=== PATIENT | female | born 1940 | race Caucasian/White ===

== ENCOUNTER 2019-06-08 21:06 | Inpatient (IN) | payer OTHER ==
[~2019-06-08] VITALS: Ht 154.9 cm; Wt 42.4 kg
[2019-06-08 21:09] VITALS: Ht 154.9 cm; Wt 42.4 kg
--- NOTE | 2019-06-08 21:20 | NUR ---
PATIENT SEEN WITH COMPLAINT OF MID ABDOMINAL PAIN W TIH NAUSEA AND VOMITING. PATIENT IS WAITING FOR MD EVALUATION.
[2019-06-08 21:42] LABS: PLATELET COUNT 225 x10^3mcL (130-400); RED CELL DISTRIBUTION WIDTH 13.9 % (11.5-14.5)
[2019-06-08 21:50] LABS: CALCIUM 9.5 mg/dL (8.5-10.1); CARBON DIOXIDE 26.9 mmol/L (21-32); CHLORIDE SERUM 99 mmol/L (98-107); CREATININE SERUM 0.9 mg/dL (0.6-1.0); GLUCOSE SERUM 220 mg/dL (74-106); POTASSIUM SERUM 3.1 mmol/L (3.5-5.1); SODIUM SERUM 140 mmol/L (136-145)
[2019-06-08 21:53] LABS: BAND NEUTROPHIL 10 % (0-10); MONOCYTE 1 % (0-7); SEGMENTED NEUTROPHILS 87 % (37-75)
[2019-06-08 21:55] LABS: PLATELET MORPHOLOGY PLATELETS NORMAL; rbc morphology (normal/abnorm) NORMAL (NORMAL)
[2019-06-08 21:59] LABS: ALBUMIN 4.1 g/dL (3.4-5.0); ALKALINE PHOSPHATASE 130 U/L (46-116); ALT/SGPT 886 U/L (14-59); BILIRUBIN TOTAL 3.04 mg/dL (0.20-1.00); LIPASE 115 IU/L (73-393); TOTAL PROTEIN, SERUM 7.6 g/dL (6.4-8.2)
--- NOTE | 2019-06-08 22:00 | NUR ---
SALINE LOCK INSERTED. PATIENT MEDICATED WITH ZOFRAN AND MORPHINE.
[2019-06-08 22:02] LABS: AST/SGOT 1366 U/L (15-37)
--- NOTE | 2019-06-08 22:25 | NUR ---
PATIENT WENT FOR XRAY/CT HAD SAME DONE AND RETURN TO THE ROOM.
--- NOTE | 2019-06-08 22:56 | NUR ---
PATIENT RESTING WITH EYES CLOSED, NO DISTRESS
[2019-06-08] MEDS ORDERED: TRAZODONE50 M1 PO (23:31)
--- NOTE | 2019-06-09 00:14 | NUR ---
REPORT WAS GIVEN TO ROSA. PATIENT WILL BE TRANSPORTED TO ROOM 250B.
--- NOTE | 2019-06-09 00:15 | NUR ---
PATIENT TRANSPORTED TO THE ROOM
[2019-06-09 00:41] VITALS: BP 170/83
--- NOTE | 2019-06-09 00:44 | NUR ---
RECEIVED PT FROM ED VIA KWAME. ORIENTED PT TO ROOM AND SURROUNDINGS. IV NOTED TO LAC PATENT AND INTACT. TELE 26 PLACED ON PT READING NSR. INSTRUCTED PT ON THE USE OF CALL LIGHT FOR ASSISTANCE. ENDORSED PT TO PRIMARY NURSE ROSA
--- NOTE | 2019-06-09 00:55 | NUR ---
DR. GRIMALDO MADE AWARE OF CT ABD RESULTS.
[2019-06-09 02:01] LABS: CHOLESTEROL/HDL RATIO 3.3
[2019-06-09 02:15] LABS: FREE T4 1.18 ng/dL (0.76-1.46); FREE THYROXINE INDEX 3.7 ug/dL (1.4-4.5); T4(THYROXINE) 10.6 ug/dL (4.7-13.3)
--- NOTE | 2019-06-09 02:45 | NUR ---
US TECH AT BEDSIDE. PT REFUSING STAT US ABD AT THIS TIME, REQUESTS FOR TECH TO RETURN AT A LATER TIME
[2019-06-09 02:58] LABS: T3 TOTAL 0.89 ng/mL
--- NOTE | 2019-06-09 03:43 | NUR ---
RESTING IN BED WITH EYES CLOSED. BREATHING E/U, NO ACUTE DISTRESS NOTED. WILL CONTINUE TO MONITOR.
[2019-06-09 04:49] VITALS: BP 175/71
--- NOTE | 2019-06-09 05:30 | NUR ---
NOTIFIED DR GRIMALDO OF BP 175/70, HR 45.
[2019-06-09 06:39] LABS: UA SPECIFIC GRAVITY 1.015 (1.005-1.035); microscopic required? YES; urine erythrocyte 2+ (NEGATIVE)
--- NOTE | 2019-06-09 07:07 | NUR ---
PT C/O ABD PAIN 12/23 THIS AM. STATES TOLERABLE. NPO OVERNIGHT FOR POSSIBLE PROCEDURE TODAY. NO ACUTE DISTRESS NOTED. WILL ENDORSE TO ONCOMING RN.
--- NOTE | 2019-06-09 07:15 | NUR ---
BP ELEVATED 178/75, HR 44, DR. KIMBALL MADE AWARE. NO BP MED TO GIVE AT THIS TIME. PHYSICIAN MADE AWARE. AWAITING FURTHER ORDERS. NO S/S OF ACUTE DISTRESS. WILL CONTINUE TO MONITOR CLOSELY. NO LUCIA. NO DIZZINESS. NO CHEST PAIN. PT CALM/COOPERATIVE LAYING IN BED. NO SOB ON ROOM AIR. SPEAKS SOUTH [place]UDANESE. AA/OX3. FOLLOWS COMPLEX COMMANDS. FALL PREC IN PLACE. BED IN LOW POSITION. PT IN ROOM CLOSE TO NURSES STATION. IV WNL TO LAC, PATENT AND FLUSHES WELL. SALINE LOCKED. INSTRUCTED TO USE CALL LIGHT TO CALL FOR ASSISTANCE PRN. VERBALIZED UNDERSTANDING. WILL CONTINUE TO MONITOR.
[2019-06-09 07:16] LABS: PLATELET COUNT 195 x10^3mcL (130-400); RED CELL DISTRIBUTION WIDTH 14.4 % (11.5-14.5)
[2019-06-09 07:41] LABS: ALBUMIN 3.5 g/dL (3.4-5.0); ALKALINE PHOSPHATASE 122 U/L (46-116); ALT/SGPT 850 U/L (14-59); AST/SGOT 666 U/L (15-37); BILIRUBIN TOTAL 4.25 mg/dL (0.20-1.00); CALCIUM 8.6 mg/dL (8.5-10.1); CARBON DIOXIDE 21.2 mmol/L (21-32); CHLORIDE SERUM 101 mmol/L (98-107); CREATININE SERUM 0.6 mg/dL (0.6-1.0); GLUCOSE SERUM 174 mg/dL (74-106); POTASSIUM SERUM 3.1 mmol/L (3.5-5.1); SODIUM SERUM 138 mmol/L (136-145); TOTAL PROTEIN, SERUM 6.8 g/dL (6.4-8.2)
[2019-06-09 08:32] VITALS: BP 177/69
--- NOTE | 2019-06-09 09:33 | NUR ---
WBC 28.7, INCREASED, DR. KIMBALL MADE AWARE. NO FURTHER ORDERS AT THIS TIME. NO CHILLS. NO FEVER. NO SOB ON ROOM AIR. NO S/S OF ACUTE DISTRESS. NO N/V. PT SCHEDULED FOR PROCEDURE TODAY. K 3.1. DR. KIMBALL AWARE. AWAITING FURTHER ORDERS. WILL MONITOR.
--- NOTE | 2019-06-09 10:10 | NUR ---
PT TAKEN FOR PROCEDURE. AA/OX4. NO S/S OF ACUTE DISTRESS. BP DECREASED. 155/80 WITHOUT MEDICATION. NO CHEST PAIN. REPORTS MODERATE ABDOMINAL PAIN. DECLINED TO PAIN MED AT THIS TIME. NO N/V. NO SOB ON ROOM AIR. O2 SAT 95%. RR EVEN/SHALLOW UNLABORED. IV WNL TO LAC, SALINE LOCKED. REPORT GIVEN TO UPSETTERPARRISH MARCUM. RASHAWN WIPES COMPLETED. GLASSES IN PT ROOM.
[2019-06-09 10:16] LABS: BAND NEUTROPHIL 7 % (0-10); BASOPHIL 0 % (0-2); MONOCYTE 1 % (0-7); SEGMENTED NEUTROPHILS 90 % (37-75)
[2019-06-09 10:17] LABS: PLATELET MORPHOLOGY PLATELETS DECREASED
--- NOTE | 2019-06-09 11:25 | NUR ---
BLOOD CULTURE SHOWS GRAM NEGATIVE BACILLI. DR. KIMBALL AWARE. PT RECEIVING ZOSYN. NO FURTHER ORDERS. PT STILL IN PROCEDURE. WILL MONITOR.
[2019-06-09 12:52] LABS: rbc morphology (normal/abnorm) ABNORMAL (NORMAL)
[2019-06-09 13:47] VITALS: BP 159/79
--- NOTE | 2019-06-09 13:47 | NUR ---
PT BACK FROM PROCEDURE. AA/OX4. VS STABLE: BP 159/79, HR 87, O2 SAT 95% ON ROOM AIR. RR 16, TEMP 98.6F. REPORTS MILD ABDOMINAL PAIN, RATES 3/10, CRAMPING, DECLINED PAIN MEDICATION. NO SOB ON ROOM AIR. NO CHEST PAIN. NSR ON TELE 26. IV WNL TO LAC, NO REDNESS, NO SWELLING, NO INFITLRATION. PATENT AND FLUSHES WELL. IV FLUIDS FLOWING. BED IN LOW POSITION. CALL LIGHT WITHIN REACH. WILL CONTINUE TO MONITOR.
[2019-06-09 16:48] VITALS: BP 146/79
--- NOTE | 2019-06-09 18:25 | NUR ---
PT LAYING IN BED. POOR APPETITE NOTED. DENIES N/V. DENIES ABD. PAIN. NO SOB ON ROOM AIR. CALM AND COOPERATIVE. AA/OX4. IV WNL TO RIGHT WRIST, IV FLUIDS FLOWING. NO CHEST PAIN. BED IN LOW POSITION. CALL LIGHT WITHIN REACH. FALL PRECAUTIONS IN PLACE. WILL ENDORSE TO ONCOMING SHIFT.
--- NOTE | 2019-06-09 20:00 | NUR ---
RECEIVED PT IN BED, A/O X4. DENIES HEADACHE/DIZZINESS. RESP. EVEN AND UNLABORED. LUNG SOUNDS CLEAR. BILAT. ON ROOM AIR, NO ACUTE DISTRESS NOTED. AFEBRILE AND VITAL SIGNS STABLE.SR ON THE MONITOR, DENIES CP OR ANY DISCOMFORT AT THIS TIME. IVF, NS AT 100ML/HR, INTACT AND INFUSING VIA LAC, SITE CLEAR. ASSISTED WITH HS CARE. CALL LIGHT WITHIN REACH. WILL CONTINUE TO MONITOR.
[2019-06-09 20:09] VITALS: BP 144/79
--- NOTE | 2019-06-09 22:30 | NUR ---
SEEN BY DR SERRATO. NO NEW ORDER RECEIVED. CALL LIGHT WITHIN REACH. WILL CONTINUE TO MONITOR.
--- NOTE | 2019-06-10 03:34 | NUR ---
RESTING QUIETLY IN BED, WITH EYES CLOSED,APPEARS ASLEEP, EASILY AROUSABLE. RESP. EVEN AND UNLABORED.NO ACUTE DISTRESS NOTED. IVF INTACT AND INFUSING WELL, SITE CLEAR. CALL LIGHT WITHIN REACH.
[2019-06-10 05:32] VITALS: BP 145/71
--- NOTE | 2019-06-10 06:01 | NUR ---
SLEPT WELL. NO COMPLAINTS OF PAIN OR ANY DISCOMFORT DURING THE NIGHT. AFEBRILE AND VITAL SIGNS STABLE. DENIES CP OR PRESSURE. DUE MEDS GIVEN ORDERED, NATALIA. WELL. IVF INTACT AND INFUSING WELL, SITE CLEAR. VOIDING FREELY. KEPT COMFORTABLE. CALL LIGHT WITHIN REACH. WILL CONTINUE TO MONITOR.
[2019-06-10 07:09] LABS: BASOPHIL % 0.1 % (0-2); PLATELET COUNT 145 x10^3mcL (130-400); RED CELL DISTRIBUTION WIDTH 14.5 % (11.5-14.5)
--- NOTE | 2019-06-10 07:10 | NUR ---
RECEIVED PT FROM SHIFT NURSE A/OX4 RESTING IN BED. NO ACUTE DISTRESS NTOED. IV INTACT AND PATENT. BED IN LOW POSITION. CALL LIGHT WITHIN REACH. WILL CONTINUE TO MONITOR.
[2019-06-10 07:36] LABS: CALCIUM 8.1 mg/dL (8.5-10.1); CARBON DIOXIDE 26.9 mmol/L (21-32); CHLORIDE SERUM 105 mmol/L (98-107); CREATININE SERUM 0.7 mg/dL (0.6-1.0); GLUCOSE SERUM 102 mg/dL (74-106); MAGNESIUM 2.1 mg/dL (1.8-2.4); PHOSPHOROUS 1.9 mg/dL (2.5-4.9); POTASSIUM SERUM 3.7 mmol/L (3.5-5.1); SODIUM SERUM 139 mmol/L (136-145)
[2019-06-10 08:49] VITALS: BP 143/72
--- NOTE | 2019-06-10 10:10 | NUR ---
PT ASLEEP BUT AROUSABLE. NO ACUTE DISTRESS NOTED. AT BEDSIDE. CALL LIGHT WITHIN REACH. WILL CONTINUE TO MONITOR.
[2019-06-10 12:22] VITALS: BP 140/81
--- NOTE | 2019-06-10 12:29 | NUR ---
PT FELL IN THE BATHROOM AND HIT THE BACK OF HER HEAD. PT STATED SHE DENIES ANY DIZZINES BUT FEELS A LITTLE BIT OF HEAD PAIN. ASSISTED BACK TO BED. APPLIED ICE PACK ON BACK OF HEAD. WILL CONTINUE TO MONITOR.
--- NOTE | 2019-06-10 13:00 | NUR ---
PT BACK FROM PROCEDURE.
--- NOTE | 2019-06-10 13:34 | NUR ---
MADE AWARE RESULTS OF THE CT SCAN HEAD.
--- NOTE | 2019-06-10 14:30 | NUR ---
PT ASLEEP BUT AROUSABLE. NO ACUTE DISTRESS NOTED. FAMILY MEMBERS AT BEDSIDE. CALL LIGHT WITHIN REACH. WILL CONTINUE TO MONITOR.
--- NOTE | 2019-06-10 16:35 | NUR ---
PT REMAINS ASLEEP BUT AROUSABLE. NO ACUTE DISTRESS NOTED. CALL LIGHT WITHIN REACH. WILL CONTINUE TO MONITOR.
[2019-06-10 17:59] VITALS: BP 148/77
--- NOTE | 2019-06-10 18:29 | NUR ---
PT RESTING IN BED WATCHING TV. NO C/O OF ABD PAIN. DENIES ANY DIZZINESS. IV INTACT AND PATENT. FALL PRECAUTIONS IN PLACE. BED IN LOW POSITION. CALL LIGHT WITHIN REACH. WILL BE ENDORSED.
--- NOTE | 2019-06-10 19:30 | NUR ---
A/O x4. DENIES ANY LUCIA OR DIZZINESS. TELE #26, NSR. DENIES ANY CHEST PAIN OR PRESSURE. PULSES ARE PRESENT. NO EDEMA NOTED. LUNGS CLEAR IN ALL FEILDS. ON RA, DENIES ANY SOB. EQUAL CHEST RISE AND FALL. NO SIGN OF RESP DISTRESS. BOWEL SOUNDS PRESENT x4. ABD SOFT AND FLAT. SKIN WARM AND INTACT. DENIES ANY PAIN AT THIS TIME. IV ON LAC INTACT AND PATENT. NO SIGN OF IRRITATION OR INFILTRATION NOTED. BED IS AT LOWEST SETTING. CALL LIGHT WITHIN REACH. BED ALARM IS ON. WILL CONTINUE TO [facility].
[2019-06-10 20:09] VITALS: BP 154/76
--- NOTE | 2019-06-11 00:27 | NUR ---
PT IS RESTING IN BED WITH BOTH EYES CLOSED. BREATHING EVEN AND UNALBORED. NO SIGN OF DISTRESS NOTED. BED IS AT LOWEST SETTING. CALL LIGHT WITHIN REACH. WILL CONTINUE TO MONITOR.
[2019-06-11 06:00] VITALS: BP 143/66
--- NOTE | 2019-06-11 06:35 | NUR ---
PT IS RESTING IN BED WITH BOTH EYES CLOSED. BREATHING EVEN AND UNLABORED. NO SIGN OF DISTRESS NOTED. NO ACUTE EVENT OCCURED AT NIGHT. BED IS AT LOWEST SETTING. CALL LIGHT WITHIN REACH. BED ALARM IS ON. WILL ENDORSE TO AM NURSE.
[2019-06-11 06:38] LABS: BASOPHIL % 0.2 % (0-2); PLATELET COUNT 142 x10^3mcL (130-400); RED CELL DISTRIBUTION WIDTH 14.5 % (11.5-14.5)
[2019-06-11 06:58] LABS: ALKALINE PHOSPHATASE 89 U/L (46-116); ALT/SGPT 265 U/L (14-59); AST/SGOT 54 U/L (15-37); BILIRUBIN TOTAL 1.2 mg/dL (0.20-1.00); CALCIUM 8.1 mg/dL (8.5-10.1); CARBON DIOXIDE 28.7 mmol/L (21-32); CHLORIDE SERUM 105 mmol/L (98-107); CHOLESTEROL 157 mg/dL (<200); CHOLESTEROL/HDL RATIO 4.1; CREATININE SERUM 0.5 mg/dL (0.6-1.0); GLUCOSE SERUM 89 mg/dL (74-106); HDL CHOLESTEROL 38 mg/dL (40-60); MAGNESIUM 1.9 mg/dL (1.8-2.4); PHOSPHOROUS 1.6 mg/dL (2.5-4.9); SODIUM SERUM 141 mmol/L (136-145); TRIGLYCERIDES 143 mg/dL (<150)
[2019-06-11 07:01] LABS: ALBUMIN 2.4 g/dL (3.4-5.0); TOTAL PROTEIN, SERUM 5.4 g/dL (6.4-8.2)
--- NOTE | 2019-06-11 07:20 | NUR ---
PT RESTING IN BED W/ EYES CLOSED, VERBAL, SLOVENIAN, DENIED PAIN/CP/PRESURE AT THIS TIME, DENIED N/V/D/DIZZINESS, AXOX4, PERRLA, NO REDNESS/DRAINAGE, LUNGS CTA, RESP EVEN AND NON-LABORED, TELE # 26, NSR, HR-75 AT THIS TIME, CHEST RISE SYMMETRICALLY, ABD FLAT AND NON-TENDER TO TOUCH, BS ACTIVE X 4, LAST BM 06/10/19, SOFT, CONTINENET, GEN. WEAKNESS, ABLE TO MOVE ALL EXTREMITIES, IV LAC PATENT AND NO INFILTRATION NOTED, CAP REFILL < 2 SECS, PALP PULSES, ALL NEEDS MET AT THIS TIME, CALL LIGHT IN REACH, BED AT LOW POSITION, CONTINUE TO MONITOR
--- NOTE | 2019-06-11 07:37 | NUR ---
RECEIVED REPORT FROM MARAH RN, PT IN BED SLEEPING W/ NO AAPARENT ACUTE RESP DISTRESS, CONTINUE TO MONITOR
[2019-06-11 08:24] VITALS: BP 134/69
--- NOTE | 2019-06-11 09:33 | NUR ---
PT RESTING IN BED, IN NO APPARENT DISTRESS, AM MED GIVEN PER MD ORDER VIA EMAR, TAKEN WELL, NO ASE NOTED AT THIS TIME, QUESTIONS ASKED AND ANSERED, NO FURTHER CONCERNS NEEDED AT THIS TIME, SAFETY PRECAUTION FOLLOWED, CONTINUE TO MONITOR
[2019-06-11 10:14] VITALS: BP 137/64
--- NOTE | 2019-06-11 10:23 | NUR ---
VISITED BY THOM, QUESTIONS ASKED AND ANSWERED, NO FURTHER CONCERNS NEEDED AT THIS TIME, FAMILY AWARE OF NEW RODER OF PT EVAL, ALL NEEDS MET AT THIS TIME, PT IN NO AUCTE RESP DISTRESS, SAFETY PROTOCOL FOLLOWED, CONTINUE TO MONITOR
--- NOTE | 2019-06-11 11:47 | NUR ---
PT SEEN AND EVALED BY PT AT BEDSIDE
[2019-06-11 11:57] VITALS: BP 148/72
--- NOTE | 2019-06-11 14:48 | NUR ---
1. Recommend continuing full liquid diet. 2. Recommend Ensure Enlive QD
--- NOTE | 2019-06-11 14:48 | NUR ---
Initial Nutrition Assessment: 250/B YVROSE [place]IN[place]A HR Dx: abd pain, sepsis PMHx: anxiety,dyslipidemia and borderline DM PSHx: Cholecystectomy Labs: K 3.0L, CA 8.1L, ALT 265H, WBC 12.5H Meds: Colace, Zofran, zosyn Diet: Full liquid PO Intake: (06/09) dinner 100% Ht: 154.94cm (61") Wt: 42.4 kg (93#) BMI: 17.7 kg/m2 Bed scale: 43.2 kg IBW: 105# (48 kg) %IBW: 88 UBW: 89-90# Age: 78/F Food Allergies: NKFA Skin: intact Omega: 19 Edema: none GI: Last BM: 06/10 Per H&P, Pt is a 78 Yo female with PMH of anxiety, dyslipidemia and borderline DM cam to the ED because of abdominal pain and vomiting, The pain is 8/10 sharp epigastric and non-radiating. Patient also mentioned that she vomited coffee ground liquid many times today. She admits to having dark stool too. RDN Visit (06/11): Patient was alert and oriented and said that she did not eat any breakfast this morning. Per progress note (06/10), Pt underwent ERCP with balloon sweep, schpincterotomy with papillotome, pancreatic stent placement, and stone extraction with Dr. Forman. Problem with: N/V/D/C: no Problems with: Chewing/Swallowing: none Current appetite: poor Recent wt change: none %wt change: N/A Vitamin/Supplement use: none Special diet at home: regular Physical activity: sedentary Nutrition education given: Patient was encouraged to drink oral nutritional supplement. Patient agreed and is willing to try ensure enlive. Food-drug interactions: Colace- high fiber w/7807-8062 ml fluids Education given: yes Estimated Nutritional Needs Based on current body weight 43.2 kg Energy: 1034-6486 kcal/d (30-35 kcal/kg) Protein: 43-52 g/d (1.0-1.2 g/kg)- Fluid: 8784-1217 ml/d (1 ml/kcal) or per doctor Nutrition Diagnosis 1. Inadequate oral intake related to poor appetite as evidenced by self- reported poor PO. Intervention 1. Recommend continuing full liquid diet. 2. Recommend Ensure Enlive QD Monitor/Evaluate Goal: PO intake at least 75% of estimated needs Monitor: PO intake, Labs, GI function F/U in 2-3 days as high risk 06/13-
[2019-06-11 16:46] VITALS: BP 140/60
--- NOTE | 2019-06-11 18:09 | NUR ---
PT RESTING IN BED, IN NO ACUTE RESP DISTRES, VERBAL, AXOX4, CALM AND COOPERATIVE, ABLE TO MAKE NEEDS KNOWN, RESP EVEN AND NON-LABORED, CHEST RISE SYMMETRICALLY, ABLE TO MOVE ALL EXTREMITIES, AMBULATORY W/ ASSIST, CONTINENT, IV TO (L) WRIST PATENT AND NO INFILTRATION NOTED, DENIED PAIN/CP/PRESSURE, DENIED N/V/D/DIZZINESS, ALL NEEDS MET AT THIS TIME, SAFETY PROTOCOL FOLLOWED, WILL ENDORSE TO ONCOMING RN
--- NOTE | 2019-06-11 20:12 | NUR ---
PT. AWAKE, ALERT, SITTING UP IN BED. ORIENTED X4. DENIES HEADCHE OR DIZZINESS. SPEECH CLEAR. ABLE TO FOLLOW COMMANDS. BREATH SOUNDS CLEAR THROUGHOUT LUNG LAURA, RESP. EVEN, UNLABORED. NO SOB NOTED. PT. ON RA. ABD. SOFT AND ROUND, BOWEL SOUNDS ACTIVE. DENIES ABD. PAIN, DENIES NAUSEA. PEDAL PULSES MODERATE BLE. NO EDEMA NOTED. IVF N INFUSING, SITE INTACT. FAMILY AT BEDSIDE. CALL LIGHT WITHIN REACH.
[2019-06-11 21:37] VITALS: BP 146/63
--- NOTE | 2019-06-12 05:22 | NUR ---
PT. SLEPT MOSTLY THROUGHOUT NIGHT. NO COMPLAINTS OF PAIN OR DISCOMFORT. IVF INFUSING WELL, SITE REMAINS INTACT. PT. NSR ON MONITOR. CALL LIGHT WITHIN REACH.
[2019-06-12 06:04] VITALS: BP 148/71
--- NOTE | 2019-06-12 07:30 | NUR ---
PT ENDORSE TO ME THIS MORNING. LAYING IN BED RESTING. AA/OX4/ RUSSIAN AND ENG SPK. TELE 26 NSR NOTED, HR 69 NOTED/ NO SIGNS OF CP OR PRESSURE NOTED. BREATHING EVEN AND UNLABORED ON RA, NO ACUTE RESP DISTRESS NOTED. BOWEL SOUNDS ACTIVE IN ALL FOUR QUADS. VOIDS FREELY. GEN WEAKNESS NOTED/ NEEDS OOB ASSIST/ KNOWS TO CALL FOR ASSIST/ BED ALARM ON. IV TO THE LAC INTACT AND PATENT/ INFUSING AT 100 ML/HR, NO REDNESS OR SWELLING NOTED. WILL CONTINUE TO MONITOR / BY NURSING STATION.
[2019-06-12 08:12] VITALS: BP 142/65
[2019-06-12 09:09] VITALS: BP 142/65
[2019-06-12 10:27] LABS: CARBON DIOXIDE 25.6 mmol/L (21-32); CHLORIDE SERUM 106 mmol/L (98-107); CREATININE SERUM 0.5 mg/dL (0.6-1.0); GLUCOSE SERUM 96 mg/dL (74-106); SODIUM SERUM 142 mmol/L (136-145)
[2019-06-12 10:31] LABS: POTASSIUM SERUM 2.6 mmol/L (3.5-5.1)
--- NOTE | 2019-06-12 10:43 | NUR ---
LAB CALLED K 2.6 DR. GRIMALDO AWARE.
--- NOTE | 2019-06-12 10:48 | NUR ---
DR. ARIAS AND MEDICAL TEAM AT BEDSIDE. PER HIS ORDERS, DC NS. PT IS NOW HEPLOCKED. ASSISTED PT UP TO THE BATHROOM/ UNSTEADY/ ADJUNCT PHILOSOPHY FACULTY AT BEDSIDE WILL ASSIST PT BACK TO BED. WILL CONTINUE TO MONITOR.
[2019-06-12 10:54] LABS: BASOPHIL % 0.3 % (0-2); PLATELET COUNT 161 x10^3mcL (130-400); RED CELL DISTRIBUTION WIDTH 14.3 % (11.5-14.5)
[2019-06-12 12:58] VITALS: BP 145/71
--- NOTE | 2019-06-12 14:25 | NUR ---
PT TOLERATED 100% OF HER LUNCH. FAMILY AT BEDSIDE. WILL CONTINUE TO MONITOR.
[2019-06-12] MEDS ORDERED: ZOS3PM IV (15:37)
[2019-06-12] MEDS ORDERED: NOR5 PO (15:40)
[2019-06-12] MEDS ORDERED: ZES5 PO (15:40)
[2019-06-12 16:21] VITALS: BP 142/70
--- NOTE | 2019-06-12 18:37 | NUR ---
NO ACUTE CHANGES AT THIS TIME. NO ACUTE RESP DISTRESS OR SOB NOTED. IV TO THE THE LFA INTACT AND PATENT/ HEPLOCKED. DENIES ANY CP OR PRESSURE/ DISCOMFORT. JOE ENDORSE TO INCOMING RN.
--- NOTE | 2019-06-12 19:47 | NUR ---
RECEIVED PT FROM PREVIOUS SHIFT. PT A/OX4. DENIES PAIN. DENIES SOB ON RA. IV PATENT AND INFUSING WELL WITH NO S/S OF INFILTRATION. CALL LIGHT WITHIN REACH, BED IN LOW POSITION. FAMILY AT BEDSIDE. WILL CONTINUE TO MONITOR.
[2019-06-13 00:08] VITALS: BP 142/76
--- NOTE | 2019-06-13 01:17 | NUR ---
PT RESTING IN NO ACUTE DISTRESS. RR EVEN AND UNLABORED. CALL LIGHT WITHIN REACH, BED IN LOW POSITION. WILL CONTINUE TO MONITOR.
[2019-06-13 06:12] VITALS: BP 140/65
[2019-06-13 06:47] LABS: BASOPHIL % 0.3 % (0-2); PLATELET COUNT 190 x10^3mcL (130-400); RED CELL DISTRIBUTION WIDTH 14.3 % (11.5-14.5)
[2019-06-13 06:54] LABS: CALCIUM 8.6 mg/dL (8.5-10.1); CARBON DIOXIDE 25.6 mmol/L (21-32); CHLORIDE SERUM 107 mmol/L (98-107); CREATININE SERUM 0.5 mg/dL (0.6-1.0); GLUCOSE SERUM 95 mg/dL (74-106); POTASSIUM SERUM 3.5 mmol/L (3.5-5.1); SODIUM SERUM 141 mmol/L (136-145)
--- NOTE | 2019-06-13 07:50 | NUR ---
HANDOFF REPORT RECEIVED. PATIENT ASLEEP. NOT IN ANY DISTRESS. CALL PARISH WITHIN REACH. BED LOW AND LOCKED.
[2019-06-13 08:16] VITALS: BP 147/70
--- NOTE | 2019-06-13 10:00 | NUR ---
IV ACCESS RESTARTED IT WAS FOUND OUT OF PATIENTS ARM. AWARE OF TRANSFER TO [facility] AND PATIENT IS AGREEABLE.
[2019-06-13 10:49] VITALS: BP 147/70
--- NOTE | 2019-06-13 11:28 | NUR ---
TRANSPORT HERE FOR TRANSFER TO [facility]. OFF FLOOR AT 1115. PATIENT NOT IN ANY DISTRESS. RIGHT FA HEPLOCK G [address]. REPORT GIVEN TO [facility] ([phone]).
== END 2019-06-13 11:45 | DRG 871 ==
LOC: ED 21:06 → DU 23:36
PROVIDERS: Emergency Medicine; Internal Medicine; ADMIT General Practice
PROC: 0F7D8DZ Dilation of Pancreatic Duct with Intraluminal Device, Via Natural or Artificial Opening Endoscopic (ICD-10-PCS; principal; 2019-06-09 10:30)
PROC: 0FC98ZZ Extirpation of Matter from Common Bile Duct, Via Natural or Artificial Opening Endoscopic (ICD-10-PCS; 2019-06-09 11:30)
DX: A41.51 Sepsis due to Escherichia coli [E. coli] (principal); N17.0 Acute kidney failure with tubular necrosis; Z68.1 Body mass index [BMI] 19.9 or less, adult; K80.32 Calculus of bile duct with acute cholangitis without obstruction; I10 Essential (primary) hypertension; E87.6 Hypokalemia; E78.5 Hyperlipidemia, unspecified; F41.9 Anxiety disorder, unspecified; I25.2 Old myocardial infarction
CPT/HCPCS: 43262; 83880; 84439; C1769; C2617; G0378; J1610; J2250; J2270; J2405; J2543; J2704; J3010; J3480; J7030; J7120; Q0092